=== PATIENT | male | born 1990 | race American Indian/Alaskan Native ===

== ENCOUNTER 2017-03-04 10:05 | Emergency (ER) | payer SELFPAY ==
[2017-03-04] MEDS ORDERED: MARCAINE 0.5% INFILTRATI ONE ×2 (10:28→11:01)
[2017-03-04] MEDS ORDERED: XYLOCAINE 1% 20 mL ONE (10:28)
[2017-03-04] MEDS ORDERED: BOOSTRIX IM ONE (10:36)
[2017-03-04] MEDS ORDERED: ceFAZolin 1 GM in NACL 0.9% 20 ML IV SCH (10:45)
[2017-03-04] MEDS ORDERED: XYLOCAINE 1% 20 mL INFILTRATI ONE (11:00)
--- NOTE | 2017-03-04 11:04 | XRay Report ---
RIGHT HAND, 3 views: History: Right hand injury, pain. Findings: Tuft fracture of the distal third digit with associated soft tissue defect is identified. No foreign body is appreciated. The remaining bony structures and joint spaces are within normal limits. IMPRESSION: Tuft fracture, third digit.
[2017-03-04] MEDS ORDERED: NACL 0.9% 50 ML ONE (11:12)
--- NOTE | 2017-03-04 11:43 | Emergency Department Report ---
ED General Adult HPI - General Chief complaint: Extremity Injury, Upper Stated complaint: RIGHT HAND LACERATION Time Seen by Provider: 03/04/17 10:36 Source: patient Mode of arrival: Ambulatory Limitations: No Limitations - History of Present Illness Initial comments: The patient was trying to salvage scrap metal when a heavy piece fell on his middle and ring finger of his right hand. -: Sudden Location: right, upper extremity Radiation: non-radiation Quality: aching Consistency: constant Improves with: none Worsens with: none Associated Symptoms: denies other symptoms - Related Data Previous Rx's Medication Instructions Recorded Last Taken Type Cephalexin [Keflex] 500 mg PO Q8HR #20 cap 03/04/17 Unknown Rx HYDROcodone/APAP 5-325 [[place] 1 each PO Q6HR PRN #10 tablet 03/04/17 Unknown Rx 5/325] Allergies Allergy/AdvReac Type Severity Reaction Status Date / Time No Known Allergies Allergy Unverified 03/04/17 10:13 ED Review of Systems ROS: Stated complaint: RIGHT HAND LACERATION Other details as noted in HPI Constitutional: denies: chills, fever Eyes: denies: eye pain, eye discharge, vision change ENT: denies: ear pain, throat pain Respiratory: denies: cough, shortness of breath, wheezing Cardiovascular: denies: chest pain, palpitations Endocrine: no symptoms reported Gastrointestinal: denies: abdominal pain, nausea, diarrhea Genitourinary: denies: urgency, dysuria Musculoskeletal: denies: back pain, joint swelling, arthralgia Skin: denies: rash, lesions Neurological: other (states does have sensation in his finger tip). denies: headache, weakness, paresthesias Psychiatric: denies: anxiety, depression Hematological/Lymphatic: denies: easy bleeding, easy bruising ED Past Medical Hx - Past Medical History Previous Medical History?: No - Surgical History Past Surgical History?: No - Social History Smoking Status: Current Every Day Smoker Substance Use Type: Alcohol, Marijuana - Medications Home Medications: Home Medications Medication Instructions Recorded Confirmed Last Taken Type Cephalexin [Keflex] 500 mg PO Q8HR #20 cap 03/04/17 Unknown Rx HYDROcodone/APAP 5-325 [[place] 1 each PO Q6HR PRN #10 tablet 03/04/17 Unknown Rx 5/325] ED Physical Exam - General Limitations: No Limitations General appearance: alert, in no apparent distress - Head Head exam: Present: atraumatic, normocephalic - Eye Eye exam: Present: normal appearance. Absent: scleral icterus - ENT ENT exam: Present: mucous membranes moist - Neck Neck exam: Present: normal inspection - Respiratory Respiratory exam: Present: normal lung sounds bilaterally. Absent: respiratory distress - Cardiovascular Cardiovascular Exam: Present: regular rate, normal rhythm. Absent: systolic murmur, diastolic murmur, rubs, gallop - GI/Abdominal GI/Abdominal exam: Present: soft, normal bowel sounds. Absent: distended, tenderness, guarding, rebound - Rectal Rectal exam: Present: deferred - Extremities Exam Extremities exam: Present: other (patient has a hemorrhagic blister of the finger pad of his ring finger. He has a near amputation of the finger pad of his index finger. There is devitalized tissue but centrally there appears to be blood flow.) - Back Exam Back exam: Present: normal inspection - Neurological Exam Neurological exam: Present: alert, oriented X3, CN II-XII intact. Absent: motor sensory deficit - Psychiatric Psychiatric exam: Present: normal affect, normal mood - Skin Skin exam: Present: warm, dry, normal color. Absent: rash ED Course Vital Signs 03/04/17 03/04/17 10:13 10:40 Temperature 98 F Pulse Rate 56 L Respiratory 22 20 Rate Blood Pressure 141/94 O2 Sat by Pulse 100 100 Oximetry - Reevaluation(s) Reevaluation #1: The risks and benefits of closure of the wound were explained to the patient. I also cautioned him against smoking and since is at risk for deep vital is age in any way. Essentially the patient has a near amputation with a pedicle perhaps only 10% of circumference. He understands that and realizes that the tissue may devitalized. He was given a tetanus shot and Ancef. Digital block achieved good anesthesia. 03/04/17 11:42 Reevaluation #2: Hemorrhagic blister was aspirated of the ring finger. The near amputation was debrided and defatted. It looked persistently vitalized when it was attached. However, it has a very small vascular bridge. 03/04/17 11:46 - Laceration /Wound Repair Right Finger Wound Location: upper extremity Wound Length (cm): 3 Wound's Depth, Shape: flap, contused tissue Wound Explored: extensive D debridement of devitalized tissue Irrigated w/ Saline (ccs): 50 Betadine Prep?: Yes Anesthesia: 1% Lidocaine, 0.5% Sensorcaine Volume Anesthetic (ccs): 5 Wound Debrided: extensive Wound Repaired With: sutures Suture Size/Type: 4:0 Number of Sutures: 4 Layer Closure?: No Sterile Dressing Applied?: Yes ED Medical Decision Making - Radiology Data interpreted by me: Tuft fracture middle finger Critical care attestation.: If time is entered above; I have spent that time in minutes in the direct care of this critically ill patient, excluding procedure time. 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 Redress every 2 days. Do not smoke. Have product as directed. He may recheck here in 3 or 4 days. Sutures can be removed in 8-10 days. He also may see Dr. Mustafa for follow-up see referral. Prescriptions: Cephalexin [Keflex] 500 mg PO Q8HR #20 cap HYDROcodone/APAP 5-325 [[place] 5/325] 1 each PO Q6HR PRN #10 tablet PRN Reason: Pain Referrals: PRIMARY CARE, [Primary Care Provider] - 3-5 Days Time of Disposition: 11:47
[2017-03-04 12:45] VITALS: BP 128/73
== END 2017-03-04 12:44 | disposition home or self-care (01) ==
LOC: EDBD → ED 10:05
DX: S68.112A Complete traumatic metacarpophalangeal amputation of right middle finger, initial encounter (principal); S61.212A Laceration without foreign body of right middle finger without damage to nail, initial encounter; F17.200 Nicotine dependence, unspecified, uncomplicated; F12.10 Cannabis abuse, uncomplicated; S62.632A Displaced fracture of distal phalanx of right middle finger, initial encounter for closed fracture; W20.8XXA Other cause of strike by thrown, projected or falling object, initial encounter; Y93.89 Activity, other specified; Y92.89 Other specified places as the place of occurrence of the external cause; Y99.8 Other external cause status
CPT/HCPCS: 90471; 90715

== ENCOUNTER 2017-03-14 14:17 | Emergency (ER) | payer OTHER ==
[2017-03-14 14:35] VITALS: BP 132/69
[2017-03-14] MEDS ORDERED: XYLOCAINE 1% 20 mL INFILTRATI ONE (14:51)
--- NOTE | 2017-03-14 15:19 | Emergency Department Report ---
Suture/Staple Removal - HPI Chief Complaint: Laceration/Recheck/Suture Stated Complaint: RIGHT MIDDLE FINGER NEEDS SUTURE REMOVAL Time Seen by Provider: 03/14/17 14:46 When Sutures or [place] Placed: 11-14 Days Ago Wound Location: R middle finger ED Review of Systems ROS: Stated complaint: RIGHT MIDDLE FINGER NEEDS SUTURE REMOVAL Other details as noted in HPI Comment: All other systems reviewed and negative Constitutional: denies: chills, fever Gastrointestinal: denies: nausea, vomiting Musculoskeletal: arthralgia, other ( R middle finger pain. pt states the dressing has been on for 10 days and is stuck ) ED Past Medical Hx - Past Medical History Previous Medical History?: No - Surgical History Past Surgical History?: No - Social History Smoking Status: Current Every Day Smoker Substance Use Type: Alcohol - Medications Home Medications: Home Medications Medication Instructions Recorded Confirmed Last Taken Type Cephalexin [Keflex] 500 mg PO Q8HR #20 cap 03/04/17 Unknown Rx HYDROcodone/APAP 5-325 [[place] 1 each PO Q6HR PRN #10 tablet 03/04/17 Unknown Rx 5/325] Suture Removal Exam - Exam General: Vital signs noted. No distress. Alert and acting appropriately. Wound: Yes Tenderness Other Systems: All other systems reviewed and are unremarkable. After digital block, dressing removed. no cellulitis or drainage. partial nail hematoma noted. Pt's skin wrinkled and soft. appears wet. sutures in place ED Course Vital Signs 03/14/17 14:32 Temperature 98.7 F Pulse Rate 82 Respiratory 18 Rate Blood Pressure 132/69 O2 Sat by Pulse 100 Oximetry - Reevaluation(s) Reevaluation #1: 03/14/17 15:17 Finger and dressing soaked. Gauze dressing hardened and adhered to skin. Unable to remove due to pain. will do digital block and attempt to remove gauze. 03/14/17 15:40 Able to remove gauze dressing. PT aware skin does not look healed. Home care instructions reviewed and follow up with ORTHO encouraged. Reevaluation #2: 03/14/17 16:06 PT placed in splint by nursing staff. PT vascularly intact. Digital block has diminished sensation. - Nerve Block Consent Obtained: verbal consent Local Anesthetic Used: Lidocaine 1% Amount of anesthesia used: 4 Side: right Nerve Blocks: digital Procedure Successful: Yes Complications: none Patient Tolerated Procedure: well - Pulse Oximetry Interpretation Digit-Finger Initial Pulse Oximetry Readin Actions Taken: none ED Recheck MDM - Differential Diagnosis Wound Recheck, Suture/Staple Removal Critical Care Time: No Critical care attestation.: If time is entered above; I have spent that time in minutes in the direct care of this critically ill patient, excluding procedure time. ED Disposition Clinical Impression: Fracture of distal phalanx of finger of right hand, Encounter for re-check of laceration wound Disposition: TO HOME OR SELFCARE Is pt being admited?: No Does the pt Need Aspirin: No Condition: Stable Instructions: Finger Fracture (ED), Finger Laceration (ED) Additional Instructions: wash your suture site twice a day. Pat dry. For the next few days, you can apply a thin layer of antibiotic ointment and cover with a bandaid. Leave your suture site open to air at night. Return to the ED in 2 days for recheck Follow up with Dr Mustafa (ortho) next week Wear your splint when up and active Referrals: PRIMARY MD ALAN [Primary Care Provider] - 3-5 Days CESAR MUSTAFA MD [Staff Physician] - 3-5 Days Forms: Work/School Release Form(ED) Time of Disposition: 15:43
[2017-03-14] MEDS ORDERED: XYLOCAINE 1% MPF 5 mL ONE (15:20)
[2017-03-14] MEDS ORDERED: TRIPLE ANTIBIOTIC TP ONE (15:37)
== END 2017-03-14 16:14 | disposition home or self-care (01) ==
LOC: ED 14:17
DX: S62.632G Displaced fracture of distal phalanx of right middle finger, subsequent encounter for fracture with delayed healing (principal); F17.200 Nicotine dependence, unspecified, uncomplicated; X58.XXXA Exposure to other specified factors, initial encounter; Y93.89 Activity, other specified; Y92.89 Other specified places as the place of occurrence of the external cause; Y99.8 Other external cause status
CPT/HCPCS: 99282; A6250

== ENCOUNTER 2017-03-17 16:38 | Emergency (ER) | payer SELFPAY | END 2017-03-17 17:15 | disposition left against medical advice (07) | LOC: ED 16:38 | DX: Z53.21 Procedure and treatment not carried out due to patient leaving prior to being seen by health care provider (principal) ==

== ENCOUNTER 2017-03-18 14:42 | Emergency (ER) | payer SELFPAY ==
[2017-03-18 15:01] VITALS: BP 109/69
--- NOTE | 2017-03-18 16:49 | Emergency Department Report ---
Suture[facility]Staple Removal - [facility] Chief Complaint: Laceration/Recheck/Suture Stated Complaint: FOLLOW UP FOR SUTURE Time Seen by Provider: 03/18/17 15:03 When Sutures or [place] Placed: 11-14 Days Ago Wound Location: right middle finger ED Review of Systems ROS: Stated complaint: FOLLOW UP FOR SUTURE Other details as noted in HPI Constitutional: denies: chills, fever Eyes: denies: eye pain, eye discharge, vision change ENT: denies: ear pain, throat pain Respiratory: denies: cough, shortness of breath, wheezing Cardiovascular: denies: chest pain, palpitations Endocrine: no symptoms reported Gastrointestinal: denies: abdominal pain, nausea, diarrhea Genitourinary: denies: urgency, dysuria Musculoskeletal: denies: back pain, joint swelling, arthralgia Skin: denies: rash, lesions Neurological: denies: headache, weakness, paresthesias Psychiatric: denies: anxiety, depression Hematological/Lymphatic: denies: easy bleeding, easy bruising ED Past Medical Hx - Social History Smoking Status: Never Smoker Substance Use Type: None - Medications Home Medications: Home Medications Medication Instructions Recorded Confirmed Last Taken Type Cephalexin [Keflex] 500 mg PO Q8HR #20 cap 03/04/17 Unknown Rx HYDROcodone/APAP 5-325 [[place] 1 each PO Q6HR PRN #10 tablet 03/04/17 Unknown Rx 5/325] Suture Removal Exam - Exam General: Vital signs noted. No distress. Alert and acting appropriately. Wound: No Pathologic Erythema, No Tenderness, No Drainage, No Pus, No Wound Dehiscence Other Systems: All other systems reviewed and are unremarkable. 3 cm well healed lac with total of 4 sutures. No abscess or swelling noted. No redness. Silver metal splint intact. ED Course Vital Signs 03/18/17 14:58 Temperature 98 F Pulse Rate 63 Respiratory 18 Rate Blood Pressure 109/69 O2 Sat by Pulse 100 Oximetry - Reevaluation(s) Reevaluation #1: 03/18/17 16:51 Patient is speaking in full sentences with no signs of distress noted. ED Recheck MDM - Medical Decision Making Well healed lac with total of 4 sutures removed. No abscess or redness or swelling noted. Splint was placed back on the finger. Patient stated has a orthopedic appointment tomorrow. Patient stated he finished all his antibiotics as prescribed. Critical care attestation.: If time is entered above; I have spent that time in minutes in the direct care of this critically ill patient, excluding procedure time. ED Disposition Clinical Impression: Visit for suture removal Disposition: TO HOME OR SELFCARE Is pt being admited?: No Does the pt Need Aspirin: No Condition: Stable Instructions: Suture Removal (ED) Referrals: PRIMARY CARE, [Primary Care Provider] - 3-5 Days CESAR WRIGHT MD [Staff Physician] - 24 Hours Forms: Work/School Release Form(ED)
== END 2017-03-18 17:01 | disposition home or self-care (01) ==
LOC: ED 14:42
DX: S61.212D Laceration without foreign body of right middle finger without damage to nail, subsequent encounter (principal); X58.XXXD Exposure to other specified factors, subsequent encounter; Y93.89 Activity, other specified; Y99.8 Other external cause status; Y92.89 Other specified places as the place of occurrence of the external cause